=== PATIENT | male | born 1935 | race Caucasian/White ===

== ENCOUNTER → 2017-11-22 | Outpatient (CLI) | payer OTHER | LOC: FIMAGING 08:04 | PROVIDERS: ATTEND Family Medicine | DX: C79.51 Secondary malignant neoplasm of bone (principal); M46.92 Unspecified inflammatory spondylopathy, cervical region; M46.93 Unspecified inflammatory spondylopathy, cervicothoracic region; M48.54XA Collapsed vertebra, not elsewhere classified, thoracic region, initial encounter for fracture; M51.24 Other intervertebral disc displacement, thoracic region; Z85.46 Personal history of malignant neoplasm of prostate ==

== ENCOUNTER → 2017-11-26 | Outpatient (CLI) | payer OTHER | LOC: BRMIMAGING 09:58 | PROVIDERS: ATTEND Family Medicine | DX: Z13.820 Encounter for screening for osteoporosis (principal); M85.89 Other specified disorders of bone density and structure, multiple sites; Z85.46 Personal history of malignant neoplasm of prostate ==

== ENCOUNTER 2017-12-04 05:44 | Day surgery (SDC) | payer OTHER ==
[2017-12-04] MEDS ORDERED: CHLORHEXIDINE GLUC HIBICLENS 118 ML BTL TP ONE (06:21)
[2017-12-04] MEDS ORDERED: THROMBIN (BOVINE) 5,000 UNIT VIAL TP ONE (06:22)
[2017-12-04] MEDS ORDERED: IOPAMIDOL (ISOVUE-M 300) 15 ML VIAL ONE (06:22)
[2017-12-04] MEDS ORDERED: BACITRACIN 50,000 UNITS/10 ML SYR IRR ONE (06:22)
[2017-12-04] MEDS ORDERED: BUPIVACAINE 0.25% 30 ML SDV ONE (06:22)
[2017-12-04] MEDS ORDERED: EPINEPHrine 1 MG/ML INJ ONE (06:23)
[2017-12-04] MEDS ORDERED: LR 1,000 ML IV ONE (06:32)
[2017-12-04 06:53] LABS: PLATELET COUNT 251 10^3/uL (150-400)
[2017-12-04] MEDS ORDERED: fentaNYL 100 MCG/2 ML INJ ONE (06:55)
[2017-12-04] MEDS ORDERED: PROPOFOL/EMULSION 500 MG/50 ML BOTTLE IV ONE (06:55)
[2017-12-04] MEDS ORDERED: ceFAZolin 2 GM/SWFI 20 ML SYR IVP ONE (07:06)
[2017-12-04] MEDS ORDERED: ceFAZolin 2 GM/SWFI 2 GM/20 ML SYR IVP ONE (07:07)
--- NOTE | 2017-12-04 07:08 | PDHPUP ---
History & Physical Update H&P update statement: This history and physical update is based on an assessment of the patient which was completed after admission or registration (within 24 hours), but prior to the surgery/procedure. H&P update: H&P reviewed & patient examined, no change in patient's condition since H&P completed
--- NOTE | 2017-12-04 07:14 | PDANEPAE ---
ANE History of Present Illness 82 year old male for T6 Kyphoplasty. History of osteopenia, htn and prostate CA. ANE Past Medical History - Cardiovascular History Hx Hypertension: Yes Hx Arrhythmias: No Hx Chest Pain: No Hx Coronary Artery / Peripheral Vascular Disease: No Hx CHF / Valvular Disease: No Hx Palpitations: No - Pulmonary History Hx COPD: No Hx Asthma/Reactive Airway Disease: No Hx Recent Upper Respiratory Infection: No Hx Oxygen in Use at Home: No Hx Sleep Apnea: No Sleep Apnea Screening Result - Last Documented: Positive - Neurologic History Hx Cerebrovascular Accident: No Hx Seizures: No Hx Dementia: No - Endocrine History Hx Diabetes: No - Renal History Hx Renal Disorders: No - Liver History Hx Hepatic Disorders: No - Neurological & Psychiatric Hx Hx Neurological and Psychiatric Disorders: No - Cancer History Hx Cancer: Yes Cancer History Comment: prostate - Congenital Disorder History Hx Congenital Disorders: Yes Congenital History Comment: prostate,cad - GI History Hx Gastrointestinal Disorders: No - Other Health History Other Health History: none - Chronic Pain History Chronic Pain: No - Surgical History Prior Surgeries: none ANE Review of Systems Review of systems is: negative Review of Systems: - Exercise capacity METS (RN): 4 METS ANE Patient History - Allergies Allergies/Adverse Reactions: No Known Allergies Allergy (Verified 12/04/17 06:20) - Home Medications Home Medications: Aspirin [Aspirin 81mg (*)] 05/01/15 [Last Taken 12/02/17] Atorvastatin Calcium [Lipitor 10 mg (*)] 05/01/15 [Last Taken 12/03/17 20:30] C/E/Zn/Cu/OM3/DHA/EPA/LUT/ZEAX [Preservision Areds 2 Softgel] 05/01/15 [Last Taken 12/02/17] Cholecalciferol Vit D3 [Vitamin D3 2000 units] 05/01/15 [Last Taken 12/02/17] - NPO status NPO Since - Liquids (Date): 12/03/17 NPO Since - Liquids (Time): 20:30 NPO Since - Solids (Date): 12/03/17 NPO Since - Solids (Time): 17:30 - Smoking Hx Smoking Status: Never smoked - Family Anes Hx Family Hx Anesthesia Complications: none ANE Labs/Vital Signs - Labs Result Diagrams: 12/04/17 06:40 12/04/17 06:40 - Vital Signs Blood Pressure: 167/88 Heart Rate: 90 Respiratory Rate: 16 O2 Sat (%): 99 Height: 175.26 cm Weight: 68.039 kg ANE Physical Exam - Airway Mallampati Score: Class 2 Mouth exam: normal dental/mouth exam - Pulmonary Pulmonary: no respiratory distress - Cardiovascular Cardiovascular: regular rate and rhythym - ASA Status ASA Status: II ANE Anesthesia Plan Anesthesia Plan: general endotracheal anesthesia
[2017-12-04] MEDS ORDERED: HYDROmorphONE/DILAUDID 2 MG/ML INJ IVP PRN (08:14)
[2017-12-04] MEDS ORDERED: NALOXONE HCL 0.4 MG/ML INJ IVP PRN (08:14)
[2017-12-04] MEDS ORDERED: ALBUTEROL 3 ML DEYVIAL IH PRN (08:14)
[2017-12-04] MEDS ORDERED: LABETALOL HCL 5 MG/ML 20 ML MDV IVP PRN (08:14)
[2017-12-04] MEDS ORDERED: ONDANSETRON 4 MG/2 ML VIAL IVP PRN ×2 (08:14→09:01)
[2017-12-04] MEDS ORDERED: fentaNYL 100 MCG/2 ML INJ IVP PRN (08:14)
[2017-12-04] MEDS ORDERED: DEXAMETHASONE 4 MG/ML VIAL IVP PRN (08:14)
[2017-12-04] MEDS ORDERED: ACETAMINOPHEN 500 MG TAB PO PRN (08:14)
[2017-12-04] MEDS ORDERED: oxyCODONE IR 5 MG TAB PO PRN (08:14)
[2017-12-04] MEDS ORDERED: ONDANSETRON DISINTEGRATING 4 MG TAB PO PRN (09:01)
--- NOTE | 2017-12-04 09:01 | SOAPPROG ---
SOAP Progress Note Assessment/Plan: Assessment: 82 yo M sp T6 kyphplasty Plan: stable dc home please call with neuro changes 12/04/17 09:00 Subjective: no back pain, no leg pain Objective: Vital Signs Temp Pulse Resp BP Pulse Ox 36.5 C 90 16 167/88 H 99 12/04/17 06:21 12/04/17 07:14 12/04/17 07:14 12/04/17 07:14 12/04/17 07:14 Laboratory Results 12/04/17 06:40 12/04/17 06:40 Awake, alert PERRL, no facial droop AGATA x 4 + light touch ICD10 Worksheet Patient Problems: Problems Problem Status Onset Chest pain Acute
--- NOTE | 2017-12-04 09:06 | POSTANESTH ---
Post Anesthetic Evaluation Cardiovascular Status: Normal, Stable Respiratory Status: Normal, Stable Level of Consciousness/Mental Status: Can Participate in Eval Pain Control: Adequate, Prn Tx Ordered Nausea/Vomiting Control: Adequate, Prn Tx Ordered Complications Possibly Related to Anesthesia: None Noted
--- NOTE | 2017-12-04 09:29 | GOP ---
[f rep st] OPERATIVE REPORT DATE OF OPERATION: 12/04/2017 SURGEON: Jean Tobar MD ATTENDANCE SECRETARY: Baljinder Garcia. ANESTHESIA: General endotracheal. PREOPERATIVE DIAGNOSIS: T6 pathologic compression fracture, with possible metastatic tumor involveme nt. POSTOPERATIVE DIAGNOSIS: T6 pathologic compression fracture, with possible metastatic tumor involvem ent. PROCEDURE PERFORMED: Percutaneous needle biopsy of T6 vertebral body, with balloon kyphoplasty proce dure. Use of intraoperative computer volumetric stereotactic navigation. FINDINGS: ESTIMATED BLOOD LOSS: Trace. INDICATIONS: The patient is an 82-year-old man with a history of prostate cancer, who has a T6 compr ession fracture suspicious for tumor involvement, with intractable back pain, who presents for image- guided needle biopsy and kyphoplasty procedure. He had some radicular pain, and it was discussed wit h the patient and his daughter that this radicular pain would likely not improve with the kyphoplasty procedure, and the goal of the surgery was to hopefully achieve a diagnosis through the biopsy and i mprovement of his back pain. DESCRIPTION OF PROCEDURE: After informed consent was obtained, the patient was taken to the operatin g room and placed in the prone position on the Michael table. The thoracic area was prepped and drap ed in a sterile fashion, and after needle localization of the correct level with fluoroscopy, the sub cutaneous and intramuscular tissues were infiltrated with local anesthesia. A small midline linear i ncision was created just above the area of interest. This incision was carried down to the fascial l erick, which was incised using monopolar electrocautery, and carried in a subperiosteal plane along th e spinous processes just slightly. The Localisto neuronavigational frame was connected to the spinous process, and the O-arm neuronavigational system was brought in. 3D reconstructed images were obtaine d, and using computer volumetric stereotactic navigation, the T6 pedicles were cannulated bilaterally . Bone biopsies were taken from both sides. Only a small amount of tissue was able to be retrieved along with some blood, which was all sent for pathology. The balloons were then inserted under bipla donovan fluoroscopic image guidance and carefully dialed up, approximately 3 cc total. These were remove d and the bone cement injected under real time biplanar fluoroscopy. After achieving a good fill and having some slight leakage into the C5-6 disk space, the cannulas were removed along with the frame, and the wounds were copiously irrigated with antibiotic irrigation, and closed in a layered fashion using interrupted Vicryl sutures, followed by Steri-Strips on the skin. COMPLICATIONS: None. DISPOSITION: The patient was extubated and transferred to the recovery room in stable condition. /[id number]/MODL
[2017-12-04 11:03] VITALS: BP 147/79
== END 2017-12-04 11:30 | disposition home or self-care (01) ==
LOC: FSGY 05:44
PROVIDERS: ATTEND Neurological Surgery
DX: M84.58XA Pathological fracture in neoplastic disease, other specified site, initial encounter for fracture (principal); M85.80 Other specified disorders of bone density and structure, unspecified site; I10 Essential (primary) hypertension; Z85.46 Personal history of malignant neoplasm of prostate
CPT/HCPCS: 22513; 76001; C1894; C1713; J0171; J0690; J2704; J3010; Q9967

== ENCOUNTER → 2017-12-11 | Outpatient (CLI) | payer OTHER | LOC: FIMAGING 08:49 | PROVIDERS: ATTEND Internal Medicine Hematology & Oncology | DX: Z12.89 Encounter for screening for malignant neoplasm of other sites (principal); M48.54XA Collapsed vertebra, not elsewhere classified, thoracic region, initial encounter for fracture; C61 Malignant neoplasm of prostate | CPT/HCPCS: 78306; A9503 ==

== ENCOUNTER → 2018-07-22 | Outpatient (CLI) | payer OTHER | LOC: BHFA 10:45 | PROVIDERS: ATTEND Internal Medicine Cardiovascular Disease | DX: R00.2 Palpitations (principal) ==

== ENCOUNTER → 2018-12-30 | Outpatient (CLI) | payer OTHER | LOC: FIMAGING 09:39 | PROVIDERS: ATTEND Physician Assistant Surgical | DX: M51.34 Other intervertebral disc degeneration, thoracic region (principal); S22.000A Wedge compression fracture of unspecified thoracic vertebra, initial encounter for closed fracture ==